=== PATIENT | female | born 2000 | race American Indian/Alaskan Native ===

== ENCOUNTER 2019-07-27 15:07 | Outpatient (CLI) | payer MEDICAID ==
[2019-07-27 15:58] LABS: Hematocrit 35.5 % (30.3-42.9); Hemoglobin 11.9 gm/dl (10.1-14.3); Mean Corpuscular HGB Conc 34 % (30-34); Mean Corpuscular Volume 98 fl (79-97); Platelet Count 250 K/mm3 (140-440); Red Blood Count 3.62 M/mm3 (3.65-5.03); Red Cell Distribution Width 14.7 % (13.2-15.2)
[2019-07-27] MEDS ORDERED: LACTATED RINGERS 1,000 ML IV SCH (16:00)
[2019-07-27 16:22] LABS: Alanine Aminotransferase 11 units/L (7-56); Uric Acid 4.4 mg/dL (3.5-7.6)
[2019-07-27] MEDS ORDERED: OXYTOCIN 20 UNIT/1000ML DRIP 20,000 MILLIUNITS/1,000 ML BAG IV ONE (16:26)
[2019-07-27 16:35] LABS: Bilirubin,Urine NEG (Negative); Blood,Urine NEG (Negative); Color,Urine Yellow (Yellow); Mucus,Urine FEW /HPF; Protein,Urine <15 mg/dL mg/dL (Negative); Urobilinogen,Urine < 2.0 mg/dL (<2.0)
[2019-07-27 17:06] VITALS: BP 115/69
== END 2019-07-27 17:30 | disposition home or self-care (01) ==
LOC: TRG 15:07 → APU 15:07 → TRG 17:30
PROVIDERS: ATTEND Obstetrics & Gynecology
DX: O13.3 Gestational [pregnancy-induced] hypertension without significant proteinuria, third trimester (principal); Z3A.34 34 weeks gestation of pregnancy
CPT/HCPCS: 36415; 59025; 81001; 82565; 83615; 84450; 84460; 84550; 85027; J2590

== ENCOUNTER 2019-08-13 20:34 | Inpatient (IN) | payer MEDICAID ==
--- NOTE | 2019-08-13 21:22 | History and Physical Report ---
History of Present Illness Date of examination: 08/13/19 (Mild PreE IOL as per [facility] recommendation) Date of admission: 08/13/19 20:34 History of present illness: EDC Confirmation: 09/03/2019 Gestational Age: 22 4/7 weeks Past History : 1 Term Births: 0 Premature Births: 0 Living Children: 0 Para: 0 Mult. Births: 0 Prev : 0 Prev. attempt? 0 Aborta: 0 Elect. Ab: 0 Spont. Ab: 0 Ectopics: 0 Past Medical History: maybe htn? 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 of genital herpes: no Partner hx. of genital herpes: no Rash, Viral, or Febrile illness since last LMP? no Varicella/Chicken Pox Status: Immunized Genetic History Congenital Heart Defect: Mom: no Dad: no Trinity Disease: Mom: no Dad: no Thalassemia Mom: no Dad: no Neural Tube Defect Mom: no Dad: no Down's Syndrome Mom: no Dad: no Danielito-Sachs Mom: no Dad: no Sickle Cell Disease/Trait Mom: no Dad: no Hemophilia Mom: no Dad: no Muscular Dystrophy Mom: no Dad: no Cystic Fibrosis Mom: no Dad: no [place] Chorea Mom: no Dad: no Mental Retardation Mom: no Dad: no Fragile X Mom: no Dad: no Other Genetic/Chromosomal Disorder Mom: no Dad: no Child w/other defect Mom: no Dad: no Enviromental Exposures Xray Exposure: no Medication, drug, or alcohol use since LMP: no Chemical/Other Exposure: no Exposure to Cat Liter: no Hx of Parvovirus (Fifth Disease): no Occupational Exposure to Children: none Active Medications (reviewed today): PLUS 27-1 MG ORAL TABLET ( VIT-FE FUMARATE-FA) 1 po daily Current Allergies (reviewed today): No known allergies Past History - Obstetrical History Expected Date of Delivery: 09/03/19 Actual Gestation: 37 Week(s) 1 Day(s) : 2 Para: 0 Hx # Term Pregnancies: 0 Number of Pregnancies: 0 Spontaneous Abortions: 1 Induced : 0 Number of Living Children: 0 Medications and Allergies Allergies Allergy/AdvReac Type Severity Reaction Status Date / Time No Known Allergies Allergy Verified 07/27/19 15:45 Home Medications Medication Instructions Recorded Confirmed Last Taken Type Vitamin 1 tab PO QDAY 08/13/19 08/13/19 08/12/19 10:00 History - Physical Exam Breasts: Positive: deferred Cardiovascular: Regular rate, Normal S1, Normal S2 Lungs: Positive: Clear to auscultation Abdomen: Positive: normal appearance, soft, normal bowel sounds. Negative: distention, tenderness Genitourinary (Female): Positive: normal external genitalia Vulva: both: normal Vagina: Positive: normal moisture. Negative: discharge Cervix: Negative: lesion, discharge Uterus: Positive: normal size, normal contour Adnexa: both: normal Anus/Rectum: Positive: normal perianal skin, heme negative. Negative: rectal mass, hemorrhoids Extremities: Positive: edema Deep Tendon Reflex Grade: Normal +2 - Obstetrical FHR: category 1 Uterine Contraction Monitor Mode: External Cervical Dilatation: 0 (vertex ballotable) Cervical Effacement Percentage: 50 station: -4 Uterine Contraction Pattern: Absent Uterine Tone Measurement Phase: Resting Results Result Diagrams: 08/13/19 22:45 08/13/19 22:45 All other labs normal. GBS NEGATIVE Current OB Labs Blood Type: A (02/21/2019) Rh Type: positive (02/21/2019) Rh Antibody Screen: negative (02/21/2019) Hgb: 11.6 (02/21/2019) Hct: 35.5 (02/21/2019) Platelets: 308 (02/21/2019) Rubella: immune (02/21/2019) RPR: nonreactive (02/21/2019) Hep B Surface Antigen: negative (02/21/2019) HIV: negative (02/21/2019) Pap Smear: abnormal (02/21/2019) Quad Screen AFP: neg (03/21/2019) Optional Labs Hepatitis C: neg (02/21/2019) Assessment and Plan 19yo @ 37w for IOL Mild PreE GBS negative. Cervidil tonight All orders in EMR Dr Arora aware. - Patient Problems (1) Mild pre-eclampsia in third trimester Onset Date: ~08/13/19 Current Visit: Yes Status: Acute Plan to address problem: [facility] recommends delivery @ 37w0d for Mild PreE PIH w/u done on admission
[2019-08-13] MEDS ORDERED: TERBUTALINE 1 MG/1 ML INJ SUB-Q PRN (21:25)
[2019-08-13] MEDS ORDERED: MINERAL OIL 30 ML ORAL LIQD PO PRN (21:25)
[2019-08-13] MEDS ORDERED: fentaNYL 100 MCG/2 ML INJ IV PRN (21:25)
[2019-08-13] MEDS ORDERED: ePHEDrine SULFATE 50 MG/1 ML INJ IV PRN (21:25)
[2019-08-13] MEDS ORDERED: ONDANSETRON 4 MG/2 ML INJ IV PRN (21:25)
[2019-08-13] MEDS ORDERED: LIDOCAINE (2%) 20 MG/1 ML VIAL 20 ML MDV INFILTRATI ONE (21:25)
[2019-08-13] MEDS ORDERED: DINOPROSTONE 10 MG VAG SUPP VG ONE (21:45)
[2019-08-13] MEDS ORDERED: LACTATED RINGERS 1,000 ML IV SCH (22:00)
[2019-08-13] MEDS ORDERED: OXYTOCIN 20 UNIT/1000ML DRIP 20 UNITS/1,000 ML BAG IV SCH (22:00)
[2019-08-13 23:34] LABS: Hematocrit 34.3 % (30.3-42.9); Hemoglobin 11.7 gm/dl (10.1-14.3); Mean Corpuscular HGB Conc 34 % (30-34); Mean Corpuscular Volume 98 fl (79-97); Platelet Count 226 K/mm3 (140-440); Red Blood Count 3.49 M/mm3 (3.65-5.03); Red Cell Distribution Width 14.9 % (13.2-15.2)
[2019-08-13 23:37] LABS: Bilirubin,Urine NEG (Negative); Blood,Urine NEG (Negative); Calcium Oxalate Crystals,Urine 2+; Color,Urine Yellow (Yellow); Mucus,Urine FEW /HPF; Protein,Urine <15 mg/dL mg/dL (Negative); Urobilinogen,Urine < 2.0 mg/dL (<2.0)
[2019-08-13 23:54] LABS: Alanine Aminotransferase 18 units/L (7-56)
[2019-08-14 02:36] LABS: Uric Acid 5.6 mg/dL (3.5-7.6)
--- NOTE | 2019-08-14 07:30 | Progress Note ---
Assessment and Plan patient comfortable, no complaints. Pt does not perceive ctx or cramping. reviewed plan of care. Will remove cervidil @ 10, allow AM care and regular diet then start pitocin. explained serial IOL, will reassess this evening or PRN. - Patient Problems (1) 37 or more weeks gestation of Current Visit: Yes Status: Acute (2) Mild pre-eclampsia in third trimester Onset Date: ~08/13/19 Current Visit: Yes Status: Acute Plan to address problem: Mag sulfate when in active labor Closely monitor b/p's and for s/s of worsening pre-e Subjective - Subjective Date of service: 08/14/19 Principal diagnosis: IUP @ 37+1, IOL for mild pre-e Patient reports: movement normal, no new complaints (denies VALDERRAMA, visual changes or epigastric pain) Objective - Vital Signs Vital Signs: Vital Signs - 12hr 08/13/19 08/13/19 08/13/19 21:49 21:51 22:32 Temperature Pulse Rate 86 84 77 Respiratory Rate Blood Pressure 162/95 151/77 140/74 Blood Pressure [Right] 08/13/19 08/13/19 08/13/19 22:56 23:06 23:16 Temperature Pulse Rate 77 83 81 Respiratory Rate Blood Pressure 157/89 153/92 156/92 Blood Pressure [Right] 08/13/19 08/13/19 08/14/19 23:21 23:53 00:21 Temperature 98.4 F Pulse Rate 93 H 90 Respiratory 16 Rate Blood Pressure 132/61 116/56 Blood Pressure [Right] 08/14/19 08/14/19 08/14/19 00:51 01:51 02:22 Temperature Pulse Rate 96 H 84 88 Respiratory Rate Blood Pressure 123/58 129/64 151/88 Blood Pressure [Right] 08/14/19 08/14/19 08/14/19 02:51 03:21 03:51 Temperature 98.1 F Pulse Rate 88 92 H 97 H Respiratory Rate Blood Pressure 137/93 139/83 139/83 Blood Pressure [Right] 08/14/19 08/14/19 08/14/19 04:21 04:52 05:21 Temperature Pulse Rate 94 H 84 82 Respiratory Rate Blood Pressure 125/81 150/89 156/96 Blood Pressure [Right] 08/14/19 08/14/19 08/14/19 05:52 06:21 06:53 Temperature Pulse Rate 76 85 85 Respiratory Rate Blood Pressure 143/89 148/84 157/93 Blood Pressure [Right] 08/14/19 08/14/19 08/14/19 07:10 07:12 07:21 Temperature 98.2 F Pulse Rate 85 89 90 Respiratory 20 Rate Blood Pressure 144/94 146/95 Blood Pressure 144/94 [Right] - Exam Breasts: normal Cardiovascular: Regular rate Lungs: Clear to auscultation, Normal air movement Abdomen: Present: normal appearance, soft Vulva: both: normal Uterus: Present: normal, fundal height above umbilicus FHR: auscultation normal, category 1 Uterine Contraction Monitor Mode: External Uterine Contraction Pattern: Irregular Uterine Contraction Intensity: Mild Extremities: normal Deep Tendon Reflex Grade: Normal +2 - Labs Labs: Abnormal Labs 08/13/19 08/13/19 08/13/19 22:45 22:45 23:00 RBC 3.49 L MCV 98 H MCH 34 H Lactate Dehydrogenase 268 H Urine WBC (Auto) 16.0 H Laboratory Results - last 24 hr 08/13/19 08/13/19 08/13/19 22:45 22:45 22:45 WBC 8.1 RBC 3.49 L Hgb 11.7 Hct 34.3 MCV 98 H MCH 34 H MCHC 34 RDW 14.9 Plt Count 226 Creatinine Estimated GFR Uric Acid AST ALT Lactate Dehydrogenase Urine Color Urine Turbidity Urine pH Ur Specific [place] Urine Protein Urine Glucose (UA) Urine Ketones Urine Blood Urine Nitrite Urine Bilirubin Urine Urobilinogen Ur Leukocyte Esterase Urine WBC (Auto) Urine RBC (Auto) U Epithel Cells (Auto) Calcium Oxalate Crystal Urine Mucus Urine Yeast (Budding) Syphilis IgG Antibody Non-reactive Blood Type AB POSITIVE Antibody Screen Negative 08/13/19 08/13/19 22:45 23:00 WBC RBC Hgb Hct MCV MCH MCHC RDW Plt Count Creatinine 0.7 Estimated GFR > 60 Uric Acid 5.6 AST 25 ALT 18 Lactate Dehydrogenase 268 H Urine Color Yellow Urine Turbidity Clear Urine pH 6.0 Ur Specific [place] 1.018 Urine Protein <15 mg/dl Urine Glucose (UA) Neg Urine Ketones Neg Urine Blood Neg Urine Nitrite Neg Urine Bilirubin Neg Urine Urobilinogen < 2.0 Ur Leukocyte Esterase Lg Urine WBC (Auto) 16.0 H Urine RBC (Auto) 8.0 U Epithel Cells (Auto) 1.0 Calcium Oxalate Crystal 2+ Urine Mucus Few Urine Yeast (Budding) 1+ Syphilis IgG Antibody Blood Type Antibody Screen
[2019-08-14] MEDS: LACTATED RINGERS 1,000 ML IV SCH (09:20)
[2019-08-14] MEDS: OXYTOCIN DRIP 30 UNITS/500 ML BAG IV SCH ×8 (12:00→16:10)
--- NOTE | 2019-08-14 16:43 | Progress Note ---
Assessment and Plan patient relatively comfortable, no change in SVE. Will continue pitocin until 1700 then d/c, allow dinner and ambulation with reactive tracing. Plan to place cervidil @ 1900. all questions addressed with patient, nursing staff aware. requested nursing staff keep up with I&O. Patient's FOC has been dumping urine. - Patient Problems (1) 37 or more weeks gestation of Current Visit: Yes Status: Acute (2) Mild pre-eclampsia in third trimester Onset Date: ~08/13/19 Current Visit: Yes Status: Acute Plan to address problem: Mag sulfate when in active labor Closely monitor b/p's and for s/s of worsening pre-e Subjective - Subjective Date of service: 08/14/19 Principal diagnosis: IUP @ 37+1, IOL for mild pre-e Patient reports: movement normal, no new complaints (denies VALDERRAMA, visual changes or epigastric pain) Objective - Vital Signs Vital Signs: Vital Signs - 12hr 08/14/19 08/14/19 08/14/19 04:52 05:21 05:52 Temperature Pulse Rate 84 82 76 Respiratory Rate Blood Pressure 150/89 156/96 143/89 Blood Pressure [Right] 08/14/19 08/14/19 08/14/19 06:21 06:53 07:10 Temperature 98.2 F Pulse Rate 85 85 85 Respiratory 20 Rate Blood Pressure 148/84 157/93 Blood Pressure 144/94 [Right] 08/14/19 08/14/19 08/14/19 07:12 07:21 07:51 Temperature Pulse Rate 89 90 86 Respiratory Rate Blood Pressure 144/94 146/95 120/71 Blood Pressure [Right] 08/14/19 08/14/19 08/14/19 08:21 08:51 09:24 Temperature Pulse Rate 84 84 86 Respiratory Rate Blood Pressure 132/68 130/71 128/77 Blood Pressure [Right] 08/14/19 08/14/19 08/14/19 12:02 12:10 12:33 Temperature 98.7 F Pulse Rate 87 87 86 Respiratory 24 Rate Blood Pressure 158/89 138/86 Blood Pressure 158/89 [Right] 08/14/19 08/14/19 08/14/19 13:02 13:33 14:04 Temperature Pulse Rate 97 H 107 H 85 Respiratory Rate Blood Pressure 140/84 132/72 160/83 Blood Pressure [Right] 08/14/19 08/14/19 08/14/19 14:22 14:33 15:03 Temperature Pulse Rate 90 83 85 Respiratory Rate Blood Pressure 154/95 167/80 138/68 Blood Pressure [Right] 08/14/19 08/14/19 15:32 16:02 Temperature 98.1 F Pulse Rate 86 100 H Respiratory 20 Rate Blood Pressure 136/68 143/80 Blood Pressure 143/80 [Right] - Exam Breasts: normal Cardiovascular: Regular rate Lungs: Clear to auscultation Abdomen: Present: normal appearance, soft Vulva: both: normal Uterus: Present: normal, fundal height above umbilicus FHR: auscultation normal Uterine Contraction Monitor Mode: External Cervical Dilatation: 0 (posterior) Cervical Effacement Percentage: 30 station: -2 Uterine Contraction Pattern: Irregular Uterine Tone Measurement Phase: Contraction Uterine Contraction Intensity: Mild Extremities: normal Deep Tendon Reflex Grade: Normal +2 - Labs Labs: Abnormal Labs 08/13/19 08/13/19 08/13/19 22:45 22:45 23:00 RBC 3.49 L MCV 98 H MCH 34 H Lactate Dehydrogenase 268 H Urine WBC (Auto) 16.0 H Laboratory Results - last 24 hr 08/13/19 08/13/19 08/13/19 22:45 22:45 22:45 WBC 8.1 RBC 3.49 L Hgb 11.7 Hct 34.3 MCV 98 H MCH 34 H MCHC 34 RDW 14.9 Plt Count 226 Creatinine Estimated GFR Uric Acid AST ALT Lactate Dehydrogenase Urine Color Urine Turbidity Urine pH Ur Specific [place] Urine Protein Urine Glucose (UA) Urine Ketones Urine Blood Urine Nitrite Urine Bilirubin Urine Urobilinogen Ur Leukocyte Esterase Urine WBC (Auto) Urine RBC (Auto) U Epithel Cells (Auto) Calcium Oxalate Crystal Urine Mucus Urine Yeast (Budding) Syphilis IgG Antibody Non-reactive Blood Type AB POSITIVE Antibody Screen Negative 08/13/19 08/13/19 22:45 23:00 WBC RBC Hgb Hct MCV MCH MCHC RDW Plt Count Creatinine 0.7 Estimated GFR > 60 Uric Acid 5.6 AST 25 ALT 18 Lactate Dehydrogenase 268 H Urine Color Yellow Urine Turbidity Clear Urine pH 6.0 Ur Specific [place] 1.018 Urine Protein <15 mg/dl Urine Glucose (UA) Neg Urine Ketones Neg Urine Blood Neg Urine Nitrite Neg Urine Bilirubin Neg Urine Urobilinogen < 2.0 Ur Leukocyte Esterase Lg Urine WBC (Auto) 16.0 H Urine RBC (Auto) 8.0 U Epithel Cells (Auto) 1.0 Calcium Oxalate Crystal 2+ Urine Mucus Few Urine Yeast (Budding) 1+ Syphilis IgG Antibody Blood Type Antibody Screen
[2019-08-14] MEDS ORDERED: DINOPROSTONE 10 MG VAG SUPP VG ONE (19:00)
[2019-08-14] MEDS ORDERED: ZOLPIDEM 5 MG TAB PO ONE (20:00)
--- NOTE | 2019-08-15 07:25 | Progress Note ---
Assessment and Plan A: 19 y.o. @ 37+ wks, IOL for pre eclampsia. Cervical exam unchanged. P: Will start Pitocin this AM. Subjective - Subjective Date of service: 08/15/19 (Pt states feeling occasional ctxs) Principal diagnosis: IUP @ 37+ wks, IOL for mild pre-e Patient reports: movement normal, no new complaints (denies VALDERRAMA, visual changes or epigastric pain) Objective - Vital Signs Vital Signs: Vital Signs - 12hr 08/14/19 08/14/19 08/14/19 19:25 19:33 20:02 Temperature 98.2 F Pulse Rate 99 H 90 Respiratory 16 Rate Blood Pressure 136/78 148/88 08/14/19 08/14/19 08/14/19 20:32 21:02 22:38 Temperature Pulse Rate 93 H 97 H 91 H Respiratory Rate Blood Pressure 169/98 141/84 133/74 08/14/19 08/15/19 08/15/19 23:38 00:00 00:38 Temperature 98.2 F Pulse Rate 83 84 Respiratory 16 Rate Blood Pressure 134/63 136/69 08/15/19 08/15/19 08/15/19 01:38 02:39 03:39 Temperature Pulse Rate 93 H 93 H 96 H Respiratory Rate Blood Pressure 142/88 144/101 140/85 08/15/19 08/15/19 08/15/19 04:39 05:38 06:39 Temperature Pulse Rate 100 H 96 H 85 Respiratory Rate Blood Pressure 124/76 140/92 135/64 - Exam Breasts: deferred Cardiovascular: Regular rate Lungs: Normal air movement Abdomen: Present: normal appearance, soft. Absent: distention, tenderness Uterus: Present: normal FHR: category 1 Uterine Contraction Monitor Mode: External Cervical Dilatation: 0 Cervical Effacement Percentage: 30 station: -2 Uterine Contraction Pattern: Absent Extremities: normal - Labs Labs: Abnormal Labs 08/13/19 08/13/19 08/13/19 22:45 22:45 23:00 RBC 3.49 L MCV 98 H MCH 34 H Lactate Dehydrogenase 268 H Urine WBC (Auto) 16.0 H
--- NOTE | 2019-08-15 08:25 | Event Note ---
Date: 08/15/19 (Spoke with patient regarding IOL.) Spoke with patient and FOC regarding serial IOL. This AM would like to try to start the Pitocin to see if that will help with cervical change. If no cervical change occurs, then let her eat lunch and after lunch start the process over again. Pt voiced understanding at that time. When RN went into the room to care for patient and she asked RN why she could not eat and shower. RN stated that pt was upset by not being able to eat this AM. Went in the room to speak with patient and she stated that if her cervix had not changed then she "just wants to go home". I again explained to the patient why she was being induced and that the risk of pre eclampsia and eclampsia, and that we were monitoring her, her b blessing, and her blood pressures. Explained that if she has a seizure, or eclampsia at home then she and her baby could . That we would not be able to monitor her and her baby when she was at home. Also spoke with the patients father, with permission of the pt on her cell phone, and updated him on pt condition. Pt is concerned about having a and states that she does not want a at this time. Explained that pt will not need a at this time and that IOL can take up to three days. Pt more calm after explanation and voiced understanding.
--- NOTE | 2019-08-15 18:26 | Progress Note ---
Assessment and Plan A: 19 y.o. @ 37+ wks, IOL for mild pre eclampsia. Cervical exam remains unchanged. P: Stop Pitocin. Allow the patient to eat dinner. Insert cytotec tonight. Subjective - Subjective Date of service: 08/15/19 (Pt is comfortable still not feeling any contractions. ) Principal diagnosis: IUP @ 37+ wks, IOL for mild pre-e Patient reports: movement normal, no new complaints (denies VALDERRAMA, visual changes or epigastric pain) Objective - Vital Signs Vital Signs: Vital Signs - 12hr 08/15/19 08/15/19 08/15/19 06:39 07:32 07:38 Temperature 98.1 F Pulse Rate 85 104 H Respiratory 18 Rate Blood Pressure 135/64 159/96 Blood Pressure [Right] O2 Sat by Pulse Oximetry 08/15/19 08/15/19 08/15/19 11:30 14:30 15:55 Temperature 98.2 F 98.2 F Pulse Rate 85 79 94 H Respiratory 16 13 Rate Blood Pressure 163/93 Blood Pressure 152/76 149/88 [Right] O2 Sat by Pulse 99 98 Oximetry 08/15/19 08/15/19 08/15/19 15:56 17:31 17:49 Temperature Pulse Rate 99 H 101 H 85 Respiratory Rate Blood Pressure 165/95 156/93 159/87 Blood Pressure [Right] O2 Sat by Pulse Oximetry 08/15/19 08/15/19 18:03 18:19 Temperature Pulse Rate 80 77 Respiratory Rate Blood Pressure 165/90 164/91 Blood Pressure [Right] O2 Sat by Pulse Oximetry - Exam Narrative Exam: Spoke with patient regarding the plan of care for the night to stop her Pitocin, let her eat dinner, and insert cytotec vaginally. Pt agrees to the plan for the night. Pt states that she is not feeling any contractions and no contractions noted on the monitor. Breasts: deferred Cardiovascular: Regular rate Lungs: Normal air movement Abdomen: Present: normal appearance, soft. Absent: distention, tenderness Vulva: both: normal Uterus: Present: normal FHR: auscultation normal Uterine Contraction Monitor Mode: External Uterine Contraction Pattern: Absent Extremities: normal Deep Tendon Reflex Grade: Normal +2 - Labs Labs: Abnormal Labs 08/13/19 08/13/19 08/13/19 22:45 22:45 23:00 RBC 3.49 L MCV 98 H MCH 34 H Lactate Dehydrogenase 268 H Urine WBC (Auto) 16.0 H
[2019-08-15] MEDS ORDERED: miSOPROStol 25 MCG TAB VG ONE ×2 (19:00→23:59)
[2019-08-15] MEDS ORDERED: ZOLPIDEM 5 MG TAB PO ONE (19:25)
[2019-08-15] MEDS ORDERED: diphenhydrAMINE 50 MG CAP PO NR (20:00)
--- NOTE | 2019-08-16 00:21 | Event Note ---
Date: 08/16/19 (Pt comfortable, resting in bed) Pt is comfortable at this time. States that she is not feeling any contractions. No contractions noted on monitor. Cervical exam remains unchanged. Cytotec 25 mcg placed vaginally. Will continue to monitor.
[2019-08-16] MEDS ORDERED: miSOPROStol 25 MCG TAB PO ONE (04:00)
--- NOTE | 2019-08-16 06:12 | Progress Note ---
Assessment and Plan pt agreed to cervical exam when I returned to her room. There is significant chg from my previous exam. Despite there not being any ctx recorded nor felt by pt. SVE 1,50,-2 prev exam was closed, thick, and very high. Pt OOB for AM care and diet Will start pitocin as soon as possible. Dr Santizo made aware of pt. - Patient Problems (1) Mild pre-eclampsia in third trimester Onset Date: ~08/13/19 Current Visit: Yes Status: Acute Plan to address problem: BP 160-130/90-70 Denies any VALDERRAMA, blurred vision, chest pain. FHR Cat 1. No ctx recorded. SVE 1,50,-2 BBOW Will allow AM care. Diet, Start Pit by 0900. Will report to Dr Santizo Subjective - Subjective Date of service: 08/16/19 (pt sleeping; defered SVE) Principal diagnosis: IUP @ 37w3d, IOL for mild pre-e Interval history: EDC Confirmation: 09/03/2019 Gestational Age: 22 4/7 weeks Past History : 1 Term Births: 0 Premature Births: 0 Living Children: 0 Para: 0 Mult. Births: 0 Prev : 0 Prev. attempt? 0 Aborta: 0 Elect. Ab: 0 Spont. Ab: 0 Ectopics: 0 Past Medical History: maybe htn? 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 of genital herpes: no Partner hx. of genital herpes: no Rash, Viral, or Febrile illness since last LMP? no Varicella/Chicken Pox Status: Immunized Genetic History Congenital Heart Defect: Mom: no Dad: no Trinity Disease: Mom: no Dad: no Thalassemia Mom: no Dad: no Neural Tube Defect Mom: no Dad: no Down's Syndrome Mom: no Dad: no Danielito-Sachs Mom: no Dad: no Sickle Cell Disease/Trait Mom: no Dad: no Hemophilia Mom: no Dad: no Muscular Dystrophy Mom: no Dad: no Cystic Fibrosis Mom: no Dad: no [place] Chorea Mom: no Dad: no Mental Retardation Mom: no Dad: no Fragile X Mom: no Dad: no Other Genetic/Chromosomal Disorder Mom: no Dad: no Child w/other defect Mom: no Dad: no Enviromental Exposures Xray Exposure: no Medication, drug, or alcohol use since LMP: no Chemical/Other Exposure: no Exposure to Cat Liter: no Hx of Parvovirus (Fifth Disease): no Occupational Exposure to Children: none Active Medications (reviewed today): PLUS 27-1 MG ORAL TABLET ( VIT-FE FUMARATE-FA) 1 po daily Current Allergies (reviewed today): No known allergies Patient reports: movement normal, no new complaints (denies VALDERRAMA, visual changes or epigastric pain) Objective - Vital Signs Vital Signs: Vital Signs - 12hr 08/15/19 08/15/19 08/15/19 18:19 18:33 19:26 Temperature Pulse Rate 77 76 85 Blood Pressure 164/91 159/85 160/94 08/15/19 08/15/19 08/15/19 19:34 19:36 19:48 Temperature 98.4 F Pulse Rate 86 86 Blood Pressure 153/89 154/88 08/15/19 08/15/19 08/15/19 20:03 20:19 20:35 Temperature Pulse Rate 75 85 97 H Blood Pressure 150/82 181/99 159/105 08/15/19 08/15/19 08/15/19 21:19 21:34 21:48 Temperature Pulse Rate 82 85 89 Blood Pressure 174/89 164/89 154/81 08/15/19 08/15/19 08/15/19 22:04 22:19 22:33 Temperature Pulse Rate 93 H 86 86 Blood Pressure 148/85 147/65 139/62 08/15/19 08/15/19 08/15/19 22:48 23:04 23:18 Temperature Pulse Rate 91 H 85 86 Blood Pressure 152/68 131/59 139/63 08/15/19 08/15/19 08/16/19 23:33 23:48 00:04 Temperature Pulse Rate 93 H 105 H 83 Blood Pressure 139/63 150/65 142/65 08/16/19 08/16/19 08/16/19 00:19 00:34 00:48 Temperature Pulse Rate 92 H 80 76 Blood Pressure 153/73 128/67 131/67 08/16/19 08/16/19 08/16/19 01:05 01:18 01:33 Temperature Pulse Rate 75 80 77 Blood Pressure 134/77 136/80 140/79 08/16/19 08/16/19 08/16/19 02:00 02:04 02:20 Temperature 98.6 F Pulse Rate 73 75 Blood Pressure 173/87 163/85 08/16/19 08/16/19 08/16/19 02:35 02:48 03:03 Temperature Pulse Rate 80 75 79 Blood Pressure 156/85 165/90 164/82 08/16/19 08/16/19 08/16/19 03:19 03:33 03:49 Temperature Pulse Rate 78 79 75 Blood Pressure 151/74 146/71 165/90 08/16/19 08/16/19 08/16/19 04:03 04:19 04:35 Temperature Pulse Rate 86 83 93 H Blood Pressure 152/82 141/96 168/95 08/16/19 08/16/19 08/16/19 04:49 05:19 05:33 Temperature Pulse Rate 88 77 83 Blood Pressure 158/79 137/63 126/60 08/16/19 08/16/19 05:48 06:05 Temperature Pulse Rate 83 92 H Blood Pressure 131/61 141/82 - Exam Breasts: deferred Cardiovascular: Regular rate Lungs: Normal air movement Abdomen: Present: normal appearance, soft. Absent: distention, tenderness Uterus: Present: normal FHR: auscultation normal, category 1 Uterine Contraction Monitor Mode: External Cervical Dilatation: 1 (cervix is anterior) Cervical Effacement Percentage: 50 (BBOW) station: -2 Uterine Contraction Pattern: Absent Uterine Tone Measurement Phase: Resting Extremities: edema (pt requested SCDs off) Deep Tendon Reflex Grade: Normal +2 - Labs Labs: Abnormal Labs 08/13/19 08/13/19 08/13/19 22:45 22:45 23:00 RBC 3.49 L MCV 98 H MCH 34 H Lactate Dehydrogenase 268 H Urine WBC (Auto) 16.0 H
[2019-08-16] MEDS ORDERED: OXYTOCIN DRIP 30 UNITS/500 ML BAG IV SCH (08:00)
[2019-08-16] MEDS: LACTATED RINGERS 1,000 ML IV SCH (09:35)
[2019-08-16] MEDS ORDERED: DEXMEDETOMIDINE 200 MCG/2 ML VIAL IV ONE ×2 (11:02→18:08)
[2019-08-16] MEDS ORDERED: fentaNYL-BUPIV 2 MCG/ML-0.125% 200 MCG/100 ML BAG EPIDURAL ONE (11:02)
[2019-08-16] MEDS ORDERED: NALOXONE 2 MG/2 ML INJ IV PRN (11:03)
[2019-08-16] MEDS ORDERED: ePHEDrine SULFATE 50 MG/1 ML INJ IV PRN (11:03)
--- NOTE | 2019-08-16 11:03 | Anesthesia Consultation ---
Anesthesia Consult and Med Hx Date of service: 08/16/19 - Airway Anesthetic Teeth Evaluation: Good ROM Head & Neck: Adequate Mental/Hyoid Distance: Adequate Mallampati Class: Class II Intubation Access Assessment: Probably Good - Pulmonary Exam CTA: Yes - Cardiac Exam Cardiac Exam: RRR - Pre-Operative Health Status ASA Pre-Surgery Classification: ASA3 Proposed Anesthetic Plan: Spinal - Pulmonary Hx Asthma: No COPD: No Hx Pneumonia: No - Cardiovascular System Hx Hypertension: Yes (Pre-E) - Central Nervous System Hx Seizures: No Hx Psychiatric Problems: No - Endocrine Hx Renal Disease: No Hx End Stage Renal Disease: No Hx Hypothyroidism: No Hx Hyperthyroidism: No - Hematic Hx Anemia: No Hx Sickle Cell Disease: No - Other Systems Hx Alcohol Use: No Hx Obesity: Yes
--- NOTE | 2019-08-16 11:12 | Event Note ---
Date: 08/16/19 (pt getting epidural) At 1052 BP 190/105 Spoke with CN ask that BP be retaken 145/67 Pt sitting for epidural
[2019-08-16] MEDS ORDERED: fentaNYL-BUPIV 2 MCG/ML-0.125% 200 MCG/100 ML BAG EPIDURAL SCH (12:00)
--- NOTE | 2019-08-16 12:58 | Progress Note ---
Assessment and Plan - Patient Problems (1) Mild pre-eclampsia in third trimester Onset Date: ~08/13/19 Current Visit: Yes Status: Acute Plan to address problem: BP 130-120/70-60 Cat 1 strip Uterine pressure elevated 50u with IUPC in place. SVE 4,100,0. Pit @ 4mu Observe for 1 hour prior to increasing pitocin Subjective - Subjective Date of service: 08/16/19 (comfortable with epidural) Principal diagnosis: IUP @ 37w3d, IOL for mild pre-e Interval history: EDC Confirmation: 09/03/2019 Gestational Age: 22 4/7 weeks Past History : 1 Term Births: 0 Premature Births: 0 Living Children: 0 Para: 0 Mult. Births: 0 Prev : 0 Prev. attempt? 0 Aborta: 0 Elect. Ab: 0 Spont. Ab: 0 Ectopics: 0 Past Medical History: maybe htn? Past Surgical History: skin graft right arm and right thigh following morel Past Medical History Surgery (Non-cap parts cutter): skin graft right arm and right thigh following morel Abnormal PAP: negative Family Hx: htn - mother Social Hx: single relocated from [facility] 04/2019 denies ETOH/Drugs/Smoking Dog ob/gyn physician Infection History Hx of STD: chlamydia HIV Risk Eval: low risk Hepatitis B Risk Eval: low risk Personal hx. of genital herpes: no Partner hx. of genital herpes: no Rash, Viral, or Febrile illness since last LMP? no Varicella/Chicken Pox Status: Immunized Genetic History Congenital Heart Defect: Mom: no Dad: no Trinity Disease: Mom: no Dad: no Thalassemia Mom: no Dad: no Neural Tube Defect Mom: no Dad: no Down's Syndrome Mom: no Dad: no Danielito-Sachs Mom: no Dad: no Sickle Cell Disease/Trait Mom: no Dad: no Hemophilia Mom: no Dad: no Muscular Dystrophy Mom: no Dad: no Cystic Fibrosis Mom: no Dad: no [place] Chorea Mom: no Dad: no Mental Retardation Mom: no Dad: no Fragile X Mom: no Dad: no Other Genetic/Chromosomal Disorder Mom: no Dad: no Child w/other defect Mom: no Dad: no Enviromental Exposures Xray Exposure: no Medication, drug, or alcohol use since LMP: no Chemical/Other Exposure: no Exposure to Cat Liter: no Hx of Parvovirus (Fifth Disease): no Occupational Exposure to Children: none Active Medications (reviewed today): PLUS 27-1 MG ORAL TABLET ( VIT-FE FUMARATE-FA) 1 po daily Current Allergies (reviewed today): No known allergies Patient reports: movement normal, no new complaints (denies VALDERRAMA, visual changes or epigastric pain) Objective - Vital Signs Vital Signs: Vital Signs - 12hr 08/16/19 08/16/19 08/16/19 01:05 01:18 01:33 Temperature Pulse Rate 75 80 77 Blood Pressure 134/77 136/80 140/79 O2 Sat by Pulse Oximetry 08/16/19 08/16/19 08/16/19 02:00 02:04 02:20 Temperature 98.6 F Pulse Rate 73 75 Blood Pressure 173/87 163/85 O2 Sat by Pulse Oximetry 08/16/19 08/16/19 08/16/19 02:35 02:48 03:03 Temperature Pulse Rate 80 75 79 Blood Pressure 156/85 165/90 164/82 O2 Sat by Pulse Oximetry 08/16/19 08/16/19 08/16/19 03:19 03:33 03:49 Temperature Pulse Rate 78 79 75 Blood Pressure 151/74 146/71 165/90 O2 Sat by Pulse Oximetry 08/16/19 08/16/19 08/16/19 04:03 04:19 04:35 Temperature Pulse Rate 86 83 93 H Blood Pressure 152/82 141/96 168/95 O2 Sat by Pulse Oximetry 08/16/19 08/16/19 08/16/19 04:49 05:19 05:33 Temperature Pulse Rate 88 77 83 Blood Pressure 158/79 137/63 126/60 O2 Sat by Pulse Oximetry 08/16/19 08/16/19 08/16/19 05:48 06:05 08:52 Temperature Pulse Rate 83 92 H 87 Blood Pressure 131/61 141/82 133/74 O2 Sat by Pulse Oximetry 08/16/19 08/16/19 08/16/19 08:56 08:57 09:01 Temperature Pulse Rate 93 H Blood Pressure O2 Sat by Pulse 72 L 88 100 Oximetry 08/16/19 08/16/19 08/16/19 09:06 09:11 09:16 Temperature Pulse Rate 89 91 H 98 H Blood Pressure O2 Sat by Pulse 99 99 100 Oximetry 08/16/19 08/16/1920 09:29 09:31 09:32 Temperature Pulse Rate 97 H 96 H 92 H Blood Pressure 164/92 161/92 O2 Sat by Pulse 99 Oximetry 08/16/19 08/16/19 08/16/19 09:34 09:39 09:44 Temperature Pulse Rate 97 H 95 H 110 H Blood Pressure 159/85 O2 Sat by Pulse 99 99 98 Oximetry 08/16/19 08/16/19 08/16/19 09:49 09:51 10:05 Temperature Pulse Rate 93 H 90 93 H Blood Pressure 144/77 O2 Sat by Pulse 97 99 Oximetry 08/16/19 08/16/19 08/16/19 10:10 10:15 10:22 Temperature Pulse Rate 93 H 98 H 99 H Blood Pressure O2 Sat by Pulse 99 99 97 Oximetry 08/16/19 08/16/19 08/16/19 10:27 10:32 10:37 Temperature Pulse Rate 97 H 113 H 103 H Blood Pressure O2 Sat by Pulse 99 99 98 Oximetry 08/16/19 08/16/19 08/16/19 10:42 10:47 10:52 Temperature Pulse Rate 96 H 97 H 98 H Blood Pressure 190/105 O2 Sat by Pulse 98 97 96 Oximetry 08/16/19 08/16/19 08/16/19 10:57 11:02 11:07 Temperature Pulse Rate 116 H 115 H 111 H Blood Pressure O2 Sat by Pulse 98 99 86 Oximetry 08/16/19 08/16/19 08/16/19 11:08 11:12 11:13 Temperature Pulse Rate 100 H 94 H Blood Pressure 182/99 O2 Sat by Pulse 87 96 94 Oximetry 08/16/19 08/16/19 08/16/19 11:14 11:16 11:17 Temperature Pulse Rate 111 H 100 H 104 H Blood Pressure 176/95 184/88 O2 Sat by Pulse 99 Oximetry 08/16/19 08/16/19 08/16/19 11:18 11:19 11:22 Temperature Pulse Rate 105 H 106 H 84 Blood Pressure 165/90 161/81 O2 Sat by Pulse 0 L 99 Oximetry 08/16/19 08/16/19 08/16/19 11:24 11:26 11:27 Temperature Pulse Rate 82 81 89 Blood Pressure 159/82 145/59 O2 Sat by Pulse 98 Oximetry 08/16/19 08/16/19 08/16/19 11:28 11:30 11:32 Temperature Pulse Rate 81 73 79 Blood Pressure 145/67 141/67 140/69 O2 Sat by Pulse 100 Oximetry 08/16/19 08/16/19 08/16/19 11:34 11:35 11:37 Temperature Pulse Rate 70 76 74 Blood Pressure 135/69 140/73 O2 Sat by Pulse 99 Oximetry 08/16/19 08/16/19 08/16/19 11:38 11:39 11:42 Temperature Pulse Rate 74 71 76 Blood Pressure 132/70 130/68 131/71 O2 Sat by Pulse 96 Oximetry 08/16/19 08/16/19 08/16/19 11:43 11:46 11:47 Temperature Pulse Rate 73 72 88 Blood Pressure 126/66 126/63 O2 Sat by Pulse 96 Oximetry 08/16/19 08/16/19 08/16/19 11:48 11:49 11:52 Temperature Pulse Rate 75 77 78 Blood Pressure 137/84 141/82 133/75 O2 Sat by Pulse 98 Oximetry 08/16/19 08/16/19 08/16/19 11:53 11:56 11:57 Temperature Pulse Rate 74 73 69 Blood Pressure 136/75 133/74 136/74 O2 Sat by Pulse 98 Oximetry 08/16/19 08/16/19 08/16/19 11:59 12:01 12:02 Temperature Pulse Rate 78 77 79 Blood Pressure 132/71 129/71 O2 Sat by Pulse 96 Oximetry 08/16/19 08/16/19 08/16/19 12:03 12:05 12:07 Temperature Pulse Rate 74 77 71 Blood Pressure 127/68 131/73 138/82 O2 Sat by Pulse 98 Oximetry 08/16/19 08/16/19 08/16/19 12:10 12:12 12:14 Temperature Pulse Rate 76 74 75 Blood Pressure 133/79 135/80 131/78 O2 Sat by Pulse 98 Oximetry 08/16/19 08/16/19 08/16/19 12:15 12:17 12:19 Temperature Pulse Rate 74 73 74 Blood Pressure 134/80 136/83 O2 Sat by Pulse 85 98 Oximetry 08/16/19 08/16/19 08/16/19 12:20 12:23 12:24 Temperature Pulse Rate 75 73 72 Blood Pressure 133/85 137/73 O2 Sat by Pulse 98 Oximetry 08/16/19 08/16/19 08/16/19 12:26 12:28 12:29 Temperature Pulse Rate 79 74 73 Blood Pressure 145/76 138/72 O2 Sat by Pulse 98 Oximetry 08/16/19 08/16/19 08/16/19 12:30 12:32 12:34 Temperature Pulse Rate 71 74 73 Blood Pressure 139/73 142/70 129/62 O2 Sat by Pulse 96 Oximetry 08/16/19 08/16/19 08/16/19 12:35 12:36 12:38 Temperature Pulse Rate 72 73 74 Blood Pressure 127/61 129/66 O2 Sat by Pulse 93 Oximetry 08/16/19 08/16/19 08/16/19 12:40 12:42 12:44 Temperature Pulse Rate 81 67 74 Blood Pressure 138/83 142/79 140/79 O2 Sat by Pulse 98 Oximetry 08/16/19 08/16/19 08/16/19 12:45 12:46 12:48 Temperature Pulse Rate 84 85 78 Blood Pressure 143/85 137/60 O2 Sat by Pulse 98 Oximetry 08/16/19 08/16/19 12:50 12:52 Temperature Pulse Rate 70 75 Blood Pressure 135/62 136/66 O2 Sat by Pulse 98 Oximetry - Exam Breasts: deferred Cardiovascular: Regular rate Lungs: Normal air movement Abdomen: Present: normal appearance, soft. Absent: distention, tenderness Uterus: Present: normal FHR: auscultation normal, category 1 FHR comments: lates noted after epidural. resolved with fluid and position chg Cat 1 now Uterine Contraction Monitor Mode: Internal Cervical Dilatation: 4 (Internals placed) Cervical Effacement Percentage: 100 station: 0 Uterine Contraction Pattern: Regular Uterine Tone Measurement Phase: Resting Uterine Contraction Intensity: Moderate Extremities: edema Deep Tendon Reflex Grade: Normal +2 - Labs Labs: Abnormal Labs 08/13/19 08/13/19 08/13/19 22:45 22:45 23:00 RBC 3.49 L MCV 98 H MCH 34 H Lactate Dehydrogenase 268 H Urine WBC (Auto) 16.0 H
--- NOTE | 2019-08-16 13:38 | Event Note ---
Date: 08/16/19 (start MGSO4) Pt now in active labor Consulted with Dr Santizo Start MGSO4 Initiate Mag Protocol
[2019-08-16] MEDS ORDERED: MAGNESIUM SULFATE 40GM/1000ML 40 GM/1,000 ML BAG IV SCH (14:00)
[2019-08-16] MEDS ORDERED: SODIUM CHLORIDE 0.9% 1000 ML 1,000 ML ONE (15:33)
--- NOTE | 2019-08-16 16:01 | Progress Note ---
Assessment and Plan SVE 9,100,0 caput noted Pt in semi fowlers Anticipate delivery - Patient Problems (1) Mild pre-eclampsia in third trimester Onset Date: ~08/13/19 Current Visit: Yes Status: Acute Plan to address problem: MGSO4 transfusion @ 2gm/hr Subjective - Subjective Date of service: 08/16/19 (Cat 2 strip) Principal diagnosis: IUP @ 37w3d, IOL for mild pre-e Interval history: EDC Confirmation: 09/03/2019 Gestational Age: 22 4/7 weeks Past History : 1 Term Births: 0 Premature Births: 0 Living Children: 0 Para: 0 Mult. Births: 0 Prev : 0 Prev. attempt? 0 Aborta: 0 Elect. Ab: 0 Spont. Ab: 0 Ectopics: 0 Past Medical History: maybe htn? 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 of genital herpes: no Partner hx. of genital herpes: no Rash, Viral, or Febrile illness since last LMP? no Varicella/Chicken Pox Status: Immunized Genetic History Congenital Heart Defect: Mom: no Dad: no Trinity Disease: Mom: no Dad: no Thalassemia Mom: no Dad: no Neural Tube Defect Mom: no Dad: no Down's Syndrome Mom: no Dad: no Danielito-Sachs Mom: no Dad: no Sickle Cell Disease/Trait Mom: no Dad: no Hemophilia Mom: no Dad: no Muscular Dystrophy Mom: no Dad: no Cystic Fibrosis Mom: no Dad: no [place] Chorea Mom: no Dad: no Mental Retardation Mom: no Dad: no Fragile X Mom: no Dad: no Other Genetic/Chromosomal Disorder Mom: no Dad: no Child w/other defect Mom: no Dad: no Enviromental Exposures Xray Exposure: no Medication, drug, or alcohol use since LMP: no Chemical/Other Exposure: no Exposure to Cat Liter: no Hx of Parvovirus (Fifth Disease): no Occupational Exposure to Children: none Active Medications (reviewed today): PLUS 27-1 MG ORAL TABLET ( VIT-FE FUMARATE-FA) 1 po daily Current Allergies (reviewed today): No known allergies Patient reports: movement normal, no new complaints (denies VALDERRAMA, visual changes or epigastric pain) Objective - Vital Signs Vital Signs: Vital Signs - 12hr 08/16/19 08/16/19 08/16/19 04:03 04:19 04:35 Temperature Pulse Rate 86 83 93 H Blood Pressure 152/82 141/96 168/95 O2 Sat by Pulse Oximetry 08/16/19 08/16/19 08/16/19 04:49 05:19 05:33 Temperature Pulse Rate 88 77 83 Blood Pressure 158/79 137/63 126/60 O2 Sat by Pulse Oximetry 08/16/19 08/16/19 08/16/19 05:48 06:05 08:52 Temperature Pulse Rate 83 92 H 87 Blood Pressure 131/61 141/82 133/74 O2 Sat by Pulse Oximetry 08/16/19 08/16/19 08/16/19 08:56 08:57 09:00 Temperature 98.6 F Pulse Rate Blood Pressure O2 Sat by Pulse 72 L 88 Oximetry 08/16/19 08/16/19 08/16/19 09:01 09:06 09:11 Temperature Pulse Rate 93 H 89 91 H Blood Pressure O2 Sat by Pulse 100 99 99 Oximetry 08/16/19 08/16/19 08/16/19 09:16 09:29 09:31 Temperature Pulse Rate 98 H 97 H 96 H Blood Pressure 164/92 O2 Sat by Pulse 100 99 Oximetry 08/16/19 08/16/19 08/16/19 09:32 09:34 09:39 Temperature Pulse Rate 92 H 97 H 95 H Blood Pressure 161/92 159/85 O2 Sat by Pulse 99 99 Oximetry 08/16/19 08/16/19 08/16/19 09:44 09:49 09:51 Temperature Pulse Rate 110 H 93 H 90 Blood Pressure 144/77 O2 Sat by Pulse 98 97 Oximetry 08/16/19 08/16/19 08/16/19 10:05 10:10 10:15 Temperature Pulse Rate 93 H 93 H 98 H Blood Pressure O2 Sat by Pulse 99 99 99 Oximetry 08/16/19 08/16/19 08/16/19 10:22 10:27 10:32 Temperature Pulse Rate 99 H 97 H 113 H Blood Pressure O2 Sat by Pulse 97 99 99 Oximetry 08/16/19 08/16/19 08/16/19 10:37 10:42 10:47 Temperature Pulse Rate 103 H 96 H 97 H Blood Pressure O2 Sat by Pulse 98 98 97 Oximetry 08/16/19 08/16/19 08/16/19 10:52 10:57 11:02 Temperature Pulse Rate 98 H 116 H 115 H Blood Pressure 190/105 O2 Sat by Pulse 96 98 99 Oximetry 08/16/19 08/16/19 08/16/19 11:07 11:08 11:12 Temperature Pulse Rate 111 H 100 H Blood Pressure 182/99 O2 Sat by Pulse 86 87 96 Oximetry 08/16/19 08/16/19 08/16/19 11:13 11:14 11:16 Temperature Pulse Rate 94 H 111 H 100 H Blood Pressure 176/95 184/88 O2 Sat by Pulse 94 Oximetry 08/16/19 08/16/19 08/16/19 11:17 11:18 11:19 Temperature Pulse Rate 104 H 105 H 106 H Blood Pressure 165/90 O2 Sat by Pulse 99 0 L Oximetry 08/16/19 08/16/19 08/16/19 11:22 11:24 11:26 Temperature Pulse Rate 84 82 81 Blood Pressure 161/81 159/82 145/59 O2 Sat by Pulse 99 Oximetry 08/16/19 08/16/19 08/16/19 11:27 11:28 11:30 Temperature Pulse Rate 89 81 73 Blood Pressure 145/67 141/67 O2 Sat by Pulse 98 Oximetry 08/16/19 08/16/19 08/16/19 11:32 11:34 11:35 Temperature Pulse Rate 79 70 76 Blood Pressure 140/69 135/69 140/73 O2 Sat by Pulse 100 Oximetry 08/16/19 08/16/19 08/16/19 11:37 11:38 11:39 Temperature Pulse Rate 74 74 71 Blood Pressure 132/70 130/68 O2 Sat by Pulse 99 Oximetry 08/16/19 08/16/19 08/16/19 11:42 11:43 11:46 Temperature Pulse Rate 76 73 72 Blood Pressure 131/71 126/66 126/63 O2 Sat by Pulse 96 Oximetry 08/16/19 08/16/19 08/16/19 11:47 11:48 11:49 Temperature Pulse Rate 88 75 77 Blood Pressure 137/84 141/82 O2 Sat by Pulse 96 Oximetry 08/16/19 08/16/19 08/16/19 11:52 11:53 11:56 Temperature Pulse Rate 78 74 73 Blood Pressure 133/75 136/75 133/74 O2 Sat by Pulse 98 Oximetry 08/16/19 08/16/19 08/16/19 11:57 11:59 12:00 Temperature 98.3 F Pulse Rate 69 78 Blood Pressure 136/74 132/71 O2 Sat by Pulse 98 Oximetry 08/16/19 08/16/19 08/16/19 12:01 12:02 12:03 Temperature Pulse Rate 77 79 74 Blood Pressure 129/71 127/68 O2 Sat by Pulse 96 Oximetry 08/16/19 08/16/19 08/16/19 12:05 12:07 12:10 Temperature Pulse Rate 77 71 76 Blood Pressure 131/73 138/82 133/79 O2 Sat by Pulse 98 Oximetry 08/16/19 08/16/19 08/16/19 12:12 12:14 12:15 Temperature Pulse Rate 74 75 74 Blood Pressure 135/80 131/78 134/80 O2 Sat by Pulse 98 Oximetry 08/16/19 08/16/19 08/16/19 12:17 12:19 12:20 Temperature Pulse Rate 73 74 75 Blood Pressure 136/83 133/85 O2 Sat by Pulse 85 98 Oximetry 08/16/19 08/16/19 08/16/19 12:23 12:24 12:26 Temperature Pulse Rate 73 72 79 Blood Pressure 137/73 145/76 O2 Sat by Pulse 98 Oximetry 08/16/19 08/16/19 08/16/19 12:28 12:29 12:30 Temperature Pulse Rate 74 73 71 Blood Pressure 138/72 139/73 O2 Sat by Pulse 98 Oximetry 08/16/19 08/16/19 08/16/19 12:32 12:34 12:35 Temperature Pulse Rate 74 73 72 Blood Pressure 142/70 129/62 O2 Sat by Pulse 96 93 Oximetry 08/16/19 08/16/19 08/16/19 12:36 12:38 12:40 Temperature Pulse Rate 73 74 81 Blood Pressure 127/61 129/66 138/83 O2 Sat by Pulse 98 Oximetry 08/16/19 08/16/1920 12:42 12:44 12:45 Temperature Pulse Rate 67 74 84 Blood Pressure 142/79 140/79 O2 Sat by Pulse 98 Oximetry 08/16/19 08/16/19 08/16/19 12:46 12:48 12:50 Temperature Pulse Rate 85 78 70 Blood Pressure 143/85 137/60 135/62 O2 Sat by Pulse 98 Oximetry 08/16/19 08/16/19 08/16/19 12:52 12:54 12:55 Temperature Pulse Rate 75 86 74 Blood Pressure 136/66 139/66 O2 Sat by Pulse 97 Oximetry 08/16/19 08/16/19 08/16/19 12:56 12:58 13:00 Temperature 98.3 F Pulse Rate 73 75 74 Blood Pressure 137/69 142/72 O2 Sat by Pulse 97 Oximetry 08/16/19 08/16/19 08/16/19 13:05 13:10 13:15 Temperature Pulse Rate 79 79 72 Blood Pressure O2 Sat by Pulse 96 98 97 Oximetry 08/16/19 08/16/19 08/16/19 13:20 13:25 13:29 Temperature Pulse Rate 74 73 76 Blood Pressure 160/88 O2 Sat by Pulse 98 97 94 Oximetry 08/16/19 08/16/19 08/16/19 13:30 13:35 13:40 Temperature Pulse Rate 74 75 76 Blood Pressure O2 Sat by Pulse 96 93 97 Oximetry 08/16/19 08/16/19 08/16/19 13:42 13:45 13:50 Temperature Pulse Rate 75 75 76 Blood Pressure O2 Sat by Pulse 91 99 100 Oximetry 08/16/19 08/16/19 08/16/19 13:56 13:58 13:59 Temperature Pulse Rate 81 76 Blood Pressure 172/97 O2 Sat by Pulse 100 92 Oximetry 08/16/19 08/16/19 08/16/19 14:00 14:01 14:06 Temperature 98.5 F Pulse Rate 83 89 Blood Pressure O2 Sat by Pulse 99 100 Oximetry 08/16/19 08/16/19 08/16/19 14:11 14:16 14:21 Temperature Pulse Rate 86 93 H 96 H Blood Pressure O2 Sat by Pulse 98 99 95 Oximetry 08/16/19 08/16/19 08/16/19 14:24 14:26 14:27 Temperature Pulse Rate 86 100 H 94 H Blood Pressure 151/70 O2 Sat by Pulse 95 93 Oximetry 08/16/19 08/16/19 08/16/19 14:29 14:31 14:32 Temperature Pulse Rate 101 H 94 H 95 H Blood Pressure 139/78 O2 Sat by Pulse 94 92 Oximetry 08/16/19 08/16/19 08/16/19 14:36 14:38 14:41 Temperature Pulse Rate 94 H 98 H 95 H Blood Pressure O2 Sat by Pulse 95 93 97 Oximetry 08/16/19 08/16/19 08/16/19 14:46 14:51 14:56 Temperature Pulse Rate 85 86 92 H Blood Pressure O2 Sat by Pulse 100 99 97 Oximetry 08/16/19 08/16/19 08/16/19 14:59 15:01 15:06 Temperature Pulse Rate 93 H 91 H 89 Blood Pressure 133/70 O2 Sat by Pulse 91 79 L 98 Oximetry 08/16/19 08/16/19 08/16/19 15:11 15:16 15:21 Temperature Pulse Rate 82 84 80 Blood Pressure O2 Sat by Pulse 97 98 98 Oximetry 08/16/19 08/16/19 08/16/19 15:23 15:26 15:30 Temperature Pulse Rate 102 H 97 H 92 H Blood Pressure 128/93 O2 Sat by Pulse 92 98 Oximetry 08/16/19 08/16/19 08/16/19 15:31 15:36 15:38 Temperature Pulse Rate 96 H 92 H 87 Blood Pressure 132/64 O2 Sat by Pulse 96 93 Oximetry 08/16/19 08/16/19 08/16/19 15:41 15:46 15:49 Temperature 99.9 F H Pulse Rate 86 80 102 H Blood Pressure O2 Sat by Pulse 100 98 91 Oximetry 08/16/19 15:51 Temperature Pulse Rate 103 H Blood Pressure O2 Sat by Pulse 93 Oximetry - Exam Breasts: deferred Cardiovascular: Regular rate Lungs: Normal air movement Abdomen: Present: normal appearance, soft. Absent: distention, tenderness Uterus: Present: normal FHR: auscultation normal, category 2 FHR comments: Resolution of variable decels with position chges, pit off, O2 on SVE 9,100,0 Caput Uterine Contraction Monitor Mode: Internal Cervical Dilatation: 9 Cervical Effacement Percentage: 100 station: 0 Uterine Contraction Pattern: Regular Uterine Tone Measurement Phase: Resting Uterine Contraction Intensity: Strong/Firm Extremities: edema Deep Tendon Reflex Grade: Normal +2 - Labs Labs: Abnormal Labs 08/13/19 08/13/19 08/13/19 22:45 22:45 23:00 RBC 3.49 L MCV 98 H MCH 34 H Lactate Dehydrogenase 268 H Urine WBC (Auto) 16.0 H
[2019-08-16] MEDS ORDERED: SODIUM CHLORIDE 0.9% 1000 ML 1,000 ML VG SCH (17:30)
[2019-08-16] MEDS ORDERED: BICITRA ORAL LIQD 30ML PO ONE (17:59)
[2019-08-16] MEDS ORDERED: FAMOTIDINE 20 MG/2 ML INJ IV ONE (17:59)
[2019-08-16] MEDS ORDERED: METOCLOPRAMIDE 10 MG/2 ML INJ IV ONE (17:59)
[2019-08-16] MEDS ORDERED: OXYTOCIN 20 UNIT/1000ML DRIP 20 UNITS/1,000 ML BAG IV SCH ×2 (18:00→20:00)
[2019-08-16] MEDS ORDERED: ceFAZolin/Water 2 GM/20 ML 2 GM/20 ML SYRINGE IV NR (18:00)
[2019-08-16] MEDS ORDERED: LACTATED RINGERS 1,000 ML IV SCH (18:00)
--- NOTE | 2019-08-16 18:03 | Event Note ---
<AP HANSON - Last Filed: 08/16/19 18:01> Date: 08/16/19 (attempted to push; john to 90BPM; persistent OP) After several attempts to rotate head, with maternal effort John continues to 90BMP Recovers to 120 w/o pushing Dr Santizo called to bedside. Decision to move to operative delivery Consents signed Preop orders in EMR <WARREN SANTIZO - Last Filed: 08/16/19 18:05> Risk associated with delivery were discussed, including but not limited to, bleeding that may require blood transfusion, infection that may be life threatening, injury to adjacent organs specifically bowel or bladder that may require further surgeries, or major vascular injury. She was also informed that when she has had a delivery she may require repeat deliveries for all subsequent pregnancies. Questions were encouraged and answered, consents were reviewed and signed. Patient voiced understanding and desires to proceed with delivery.
[2019-08-16] MEDS ORDERED: LIDOCAINE 2%/EPINEPHRINE 1:200,000 VIAL (20 ML) INFILTRATI ONE (18:08)
[2019-08-16] MEDS ORDERED: OXYTOCIN 10 UNIT/1 ML INJ ONE (18:08)
[2019-08-16] MEDS ORDERED: BUPIVACAINE/PF (0.5%) 5 MG/1 ML 30 ML VIAL INFILTRATI ONE (18:08)
[2019-08-16] MEDS ORDERED: KETOROLAC 30 MG/1 ML INJ ONE (18:08)
[2019-08-16] MEDS ORDERED: dexAMETHasone 20 MG/5 ML VIAL ONE (18:08)
[2019-08-16] MEDS ORDERED: SODIUM BICARB 8.4% 50 MEQ/50 ML VIAL IV ONE (18:08)
[2019-08-16] MEDS ORDERED: SODIUM CHLORIDE 0.9% IRR 1,500 ML BOTTLE IR ONE (18:40)
[2019-08-16] MEDS ORDERED: WATER FOR IRRIG STERILE 1,500 ML BOTTLE IR ONE (18:40)
[2019-08-16] MEDS ORDERED: CARBOPROST TROMETHAMINE 250 MCG/1 ML INJ IM ONE ×3 (18:45→19:37)
[2019-08-16] MEDS ORDERED: miSOPROStol 200 MCG TAB ONE (18:50)
[2019-08-16] MEDS ORDERED: miSOPROStol 200 MCG TAB PR ONE (19:09)
[2019-08-16] MEDS ORDERED: NALOXONE 0.4 MG/1 ML INJ IV PRN (19:10)
[2019-08-16] MEDS ORDERED: LANOLIN/ZINC/DIMETHICONE (LANSINOH) 7 GM TP PRN ×2 (19:10→22:51)
[2019-08-16] MEDS ORDERED: KETOROLAC 30 MG/1 ML INJ IV PRN ×2 (19:10)
[2019-08-16] MEDS ORDERED: WITCH HAZEL/ GLYCERIN PAD TP PRN (19:10)
[2019-08-16] MEDS ORDERED: DIPHENOXYLATE/ATROPINE TAB PO PRN (19:30)
--- NOTE | 2019-08-16 19:34 | Operative Report ---
Operative Report Operative Report: Date of operation: 08/16/2019 Pre-operative diagnosis: 1. 37 weeks gestational age 2. Preeclampsia 3. intolerance to second stage of labor 4. BMI 37 kg/m 5. Persistent occiput posterior Post-operative diagnosis: 1. 37 weeks gestational age 2. Preeclampsia 3. intolerance to second stage of labor 4. BMI 37 kg/m 5. Persistent occiput posterior Procedure name(s): Primary low transverse delivery Surgeon: Mae Santizo MD Coat Room Attendant: Nicky Paris CNM Anesthesia: Epidural EBL: 800 mL Urine output: 100 mL of clear urine out at the end of the procedure Fluids: 1500 mL Findings: Liveborn male weight 6 Lbs. 13 oz. Apgars of 5 and 8 at one and 5 minutes Indications: [] Procedure: Patient was taking to the operating room. []l anesthesia was []. Patient was then prepped and draped in the usual sterile fashion Timeout was performed. Once an appropriate level of anesthesia was noted, a Pfannenstiel incision was made and extended the fascia which was incised and extended lateral direction. The overlying fascia was sharply dissected away from the underlying rectus muscles in the superior inferior direction. The midline was entered bluntly. Bladder blade was placed. Vesicouterine fold was incised with blunt dissection bladder flap was created. A transverse incision was made in the lower uterine segment and extended superolateral direction with finger fractionation. [] fluid was noted. was delivered from the [] position, with spontaneous cry and excellent tone. Mouth and nose bulb suctioned. Cord was doubly clamped and cut was given to the resuscitation team present. Placenta was delivered. The uterus was exteriorized and cleaned of any further placental tissue and products of conception. Uterine incision was approximated using 0 Vicryl in a running interlocking stitch followed by further suture of 0 Vicryl in imbricating fashion. When hemostasis was noted the uterus was allowed back in the pelvic cavity. Pelvis was irrigated with warm normal saline. Once hemostasis was noted the rectus muscles were approximated using 0 Vicryl interrupted simple stitches 3. Once hemostasis was noted the fascia was approximated using 0 Vicryl simple running stitch. The incision was irrigated with warm saline, once hemostasis as noted, the subcuticular adipose tissue was reapproximated using 3-0 Vicryl in a simple running fashion. Skin was approximated using 4-0 Vicryl on a Bakari needle in a subcuticular manner. Counts were correct x3.
--- NOTE | 2019-08-16 20:52 | Post Anesthesia Evaluation ---
- Post Anesthesia Evaluation Patient Participated: Yes Airway Patent: Yes Stable Respiratory Function: Yes Nausea/Vomiting: No Temp > 96.8F: Yes Pain Manageable: Yes Adequeate Hydration: Yes Anesthesia Complications: No Block Receding Appropriately: Yes
[2019-08-16] MEDS ORDERED: MAGNESIUM SULFATE 40GM/1000ML 40 GM/1,000 ML BAG IV ONE (21:33)
[2019-08-16] MEDS ORDERED: hydrALAZINE 20 MG/1 ML INJ IV ONE (22:19)
[2019-08-16] MEDS ORDERED: MORPHINE 4 MG/1 ML INJ ONE (22:43)
[2019-08-16] MEDS ORDERED: MORPHINE 4 MG/1 ML INJ IV ONE (22:44)
[2019-08-16] MEDS ORDERED: SIMETHICONE 80 MG CHEW TAB PO PRN (22:51)
[2019-08-16] MEDS ORDERED: MORPHINE 4 MG/1 ML INJ IV PRN (22:51)
[2019-08-16] MEDS ORDERED: MORPHINE 2 MG/1 ML INJ IV PRN (22:51)
[2019-08-17] MEDS ORDERED: hydrALAZINE 20 MG/1 ML INJ IV ONE (01:29)
[2019-08-17] MEDS: ceFAZolin/NS 1 GM/50 ML 1 GM/50 ML BAG IV SCH ×2 (02:38→10:39)
--- NOTE | 2019-08-17 05:49 | Event Note ---
Date: 08/17/19 (LATE ENTRY) Received call from RN @ 2230 pt having BP 170/100 Apresolin ordered and given Instructed to CB in 30min. [place] from RN again in 1 1/2 hours BP still 180/[address] Santizo called and gave orders to give second dose of Apresoline and to increase Labetalol to 300mg TID. From 0300 to 0500 BP 160-130/80-60 Pt resting comfortably No c/o VALDERRAMA, blurred vision, chest pain.
[2019-08-17] MEDS ORDERED: MEASLES, MUMPS & RUBELLA 12,500 UNIT/0.5 ML VACCINE SUB-Q ONE ×2 (06:00→08:00)
[2019-08-17] MEDS ORDERED: DIPHtheria,PERTUSSIS(ACELL),TETANUS VACCINE/PF 0.5 ML VIAL IM ONE ×2 (06:00→08:00)
[2019-08-17] MEDS ORDERED: ZOLPIDEM 5 MG TAB ONE (06:09)
[2019-08-17 07:55] LABS: Hematocrit 34.1 % (30.3-42.9); Hemoglobin 11.4 gm/dl (10.1-14.3)
[2019-08-17] MEDS ORDERED: MAGNESIUM SULFATE 40GM/1000ML 40 GM/1,000 ML BAG IV SCH (08:01)
--- NOTE | 2019-08-17 08:43 | Progress Note ---
Assessment and Plan patient resting w/o complaints. output adequate. postop H&H 11.4/34.1. afebrile, b/p's mostly 130-150's/70-80. Incision dressed - d&I. pt denies VALDERRAMA/visual changes or epigastic pain. encouraged . - Patient Problems (1) Mild pre-eclampsia in third trimester Onset Date: ~08/13/19 Current Visit: Yes Status: Acute Plan to address problem: Continue mag sulfate and q6hr mag levels until 1900 tonight strict I&O Monitor for s/s worsening pre-e (2) delivery delivered Current Visit: Yes Status: Acute Plan to address problem: continue postop pathway Subjective - Subjective Date of service: 08/17/19 Principal diagnosis: postop day #1 s/p primary c/s; mild pre-e Patient reports: appetite normal, pain well controlled, no nauseated [place]: doing well, nursing well (breast and bottle feeding) Objective - Vital Signs Latest vital signs: Vital Signs Temp Pulse Resp BP BP Pulse Ox 08/17/19 08:33 97 H 143/71 08/17/19 08:18 110 H 151/70 08/17/19 08:14 102 H 151/74 08/17/19 08:03 102 H 151/74 08/17/19 08:00 98.4 F 110 H 16 151/70 08/17/19 07:49 100 H 155/78 08/17/19 07:34 104 H 174/91 08/17/19 07:18 96 H 131/84 08/17/19 06:49 104 H 120/79 08/17/19 06:35 14 08/17/19 06:34 108 H 145/66 08/17/19 06:19 106 H 165/76 08/17/19 05:56 33 L 90 08/17/19 05:54 103 H 96 08/17/19 05:49 106 H 96 08/17/19 05:48 108 H 131/62 08/17/19 05:44 101 H 96 08/17/19 05:39 102 H 96 08/17/19 05:35 15 95 08/17/19 05:34 102 H 95 08/17/19 05:33 105 H 134/60 08/17/19 05:29 100 H 95 08/17/19 05:24 104 H 95 08/17/19 05:19 103 H 95 08/17/19 05:18 101 H 132/55 08/17/19 05:14 98 H 95 08/17/19 05:09 99 H 96 08/17/19 05:04 99 H 96 08/17/19 05:03 102 H 135/61 08/17/19 04:59 97 H 95 08/17/19 04:54 95 H 96 08/17/19 04:49 95 H 97 08/17/19 04:48 104 H 131/62 08/17/19 04:44 98 H 97 08/17/19 04:39 100 H 97 08/17/19 04:37 20 08/17/19 04:35 18 08/17/19 04:34 96 H 146/65 98 08/17/19 04:29 99 H 98 08/17/19 04:24 103 H 98 08/17/19 04:19 102 H 98 08/17/19 04:18 104 H 162/75 08/17/19 04:14 102 H 98 08/17/19 04:04 100 H 166/82 08/17/19 03:35 18 08/17/19 03:34 107 H 157/82 08/17/19 03:18 107 H 160/82 08/17/19 03:07 104 H 180/89 08/17/19 03:01 102 H 99 08/17/19 02:56 98 H 99 08/17/19 02:51 97 H 99 08/17/19 02:48 98 H 149/76 08/17/19 02:46 98 H 98 08/17/19 02:41 95 H 98 08/17/19 02:36 106 H 100 08/17/19 02:35 16 08/17/19 02:33 94 H 134/69 08/17/19 02:31 91 H 98 08/17/19 02:26 96 H 99 08/17/19 02:21 101 H 99 08/17/19 02:18 92 H 131/67 08/17/19 02:16 92 H 98 08/17/19 02:11 97 H 98 08/17/19 02:06 92 H 98 08/17/19 02:03 95 H 148/80 08/17/19 02:01 101 H 99 08/17/19 01:56 106 H 99 08/17/19 01:51 96 H 99 08/17/19 01:48 96 H 148/81 08/17/19 01:46 91 H 98 08/17/19 01:41 93 H 98 08/17/19 01:36 93 H 99 08/17/19 01:35 15 08/17/19 01:33 96 H 155/87 08/17/19 01:32 96 H 94 08/17/19 01:31 98 H 97 08/17/19 01:26 96 H 98 08/17/19 01:21 97 H 98 08/17/19 01:18 103 H 157/89 08/17/19 01:16 106 H 99 08/17/19 01:11 100 H 100 08/17/19 01:09 99 H 160/80 08/17/19 01:06 97 H 100 08/17/19 01:03 96 H 160/88 08/17/19 01:01 103 H 100 08/17/19 00:56 100 H 99 08/17/19 00:51 102 H 100 08/17/19 00:49 106 H 159/88 08/17/19 00:46 110 H 99 08/17/19 00:41 107 H 100 08/17/19 00:36 110 H 99 08/17/19 00:35 16 08/17/19 00:33 110 H 173/103 08/17/19 00:31 119 H 100 08/17/19 00:26 116 H 100 08/17/19 00:21 121 H 100 08/17/19 00:18 109 H 172/96 08/17/19 00:03 111 H 166/95 08/17/19 00:01 112 H 99 08/16/19 23:56 105 H 99 08/16/19 23:51 105 H 100 08/16/19 23:48 109 H 165/99 08/16/19 23:46 110 H 100 08/16/19 23:40 108 H 100 08/16/19 23:35 107 H 18 100 08/16/19 23:33 106 H 166/90 08/16/19 23:30 104 H 99 08/16/19 23:25 108 H 100 08/16/19 23:22 18 08/16/19 23:20 111 H 99 08/16/19 23:18 109 H 165/96 08/16/19 23:15 111 H 99 08/16/19 23:13 110 H 88 08/16/19 23:10 111 H 80 L 08/16/19 23:06 109 H 94 08/16/19 23:05 113 H 94 08/16/19 23:00 110 H 100 08/16/19 22:57 110 H 92 08/16/19 22:54 104 H 100 08/16/19 22:52 18 08/16/19 22:49 101 H 175/94 92 08/16/19 22:44 104 H 84 08/16/19 22:43 95 H 80 L 08/16/19 22:39 96 H 94 08/16/19 22:37 98 H 180/110 08/16/19 22:36 94 H 92 08/16/19 22:34 98 H 100 08/16/19 22:29 96 H 96 08/16/19 22:26 104 H 94 08/16/19 22:24 103 H 100 08/16/19 22:20 99 H 93 08/16/19 22:19 98 H 97 08/16/19 22:17 93 H 180/110 08/16/19 22:14 97 H 98 08/16/19 22:11 93 H 174/108 08/16/19 22:09 91 H 100 08/16/19 22:04 84 99 08/16/19 21:59 84 99 08/16/19 21:54 89 100 08/16/19 21:49 88 99 08/16/19 21:47 83 175/102 08/16/19 21:44 86 99 08/16/19 21:39 87 100 08/16/19 21:35 98.5 F 16 100 08/16/19 21:34 93 H 100 08/16/19 21:29 91 H 99 08/16/19 21:24 88 100 08/16/19 21:19 87 99 08/16/19 21:17 93 H 176/95 08/16/19 20:41 100 H 20 139/99 98 08/16/19 20:23 100 H 16 150/87 97 08/16/19 20:08 103 H 26 H 153/91 97 08/16/19 19:53 110 H 18 139/97 100 05/07/20 19:47 107 H 18 136/103 99 05/0720 19:43 99.1 F 110 H 17 139/97 99 050720 18:09 97 H 100 05 18:04 100 H 100 0507 17:59 97 H 156/92 100 05 17:54 85 100 05/0720 17:48 83 100 0507 17:43 110 H 99 0507 17:32 93 H 100 0507 17:29 86 156/85 050720 17:27 95 H 100 0507 17:22 98 H 100 0507 17:17 98 H 100 05 17:12 97 H 100 05 17:07 97 H 100 05 17:02 103 H 100 08/16/19 16:58 91 H 143/82 05 16:56 90 100 0507 16:51 89 100 050720 16:46 91 H 100 0507 16:41 93 H 100 050720 16:36 92 H 100 05/0720 16:31 94 H 100 050720 16:29 90 146/94 05/07 16:26 93 H 100 0507 16:21 89 100 050720 16:16 96 H 100 07 16:11 96 H 100 05/0720 16:06 98 H 100 05 16:01 105 H 100 05 16:00 113 H 136/72 05 15:51 103 H 93 050720 15:49 102 H 91 05/0720 15:46 80 98 05/07/20 15:41 99.9 F H 86 100 05/0720 15:38 87 132/64 05/0720 15:36 92 H 93 05/0720 15:31 96 H 96 05/0720 15:30 92 H 128/93 05/0720 15:26 97 H 98 05/07/20 15:23 102 H 92 05/0720 15:21 80 98 05/07/20 15:16 84 98 05/0720 15:11 82 97 05/07/20 15:06 89 98 05 15:01 91 H 79 L 08/16/19 14:59 93 H 133/70 91 08/16/19 14:56 92 H 97 08/16/19 14:51 86 99 08/16/19 14:46 85 100 08/16/19 14:41 95 H 97 08/16/19 14:38 98 H 93 08/16/19 14:36 94 H 95 08/16/19 14:32 95 H 92 08/16/19 14:31 94 H 94 08/16/19 14:29 101 H 139/78 08/16/19 14:27 94 H 93 08/16/19 14:26 100 H 95 08/16/19 14:24 86 151/70 08/16/19 14:21 96 H 95 08/16/19 14:16 93 H 99 08/16/19 14:11 86 98 08/16/19 14:06 89 100 08/16/19 14:01 83 99 08/16/19 14:00 98.5 F 08/16/19 13:59 76 172/97 08/16/19 13:58 92 08/16/19 13:56 81 100 08/16/19 13:50 76 100 05 13:45 75 99 08/16/19 13:42 75 91 08/16/19 13:40 76 97 08/16/19 13:35 75 93 08/16/19 13:30 74 96 08/16/19 13:29 76 160/88 94 08/16/19 13:25 73 97 08/16/19 13:20 74 98 0507 13:15 72 97 05 13:10 79 98 05 13:05 79 96 05 13:00 98.3 F 74 97 0507 12:58 75 142/72 050720 12:56 73 137/69 0507 12:55 74 97 050720 12:54 86 139/66 0507 12:52 75 136/66 05/0720 12:50 70 135/62 98 0507 12:48 78 137/60 0507 12:46 85 143/85 05/07/20 12:45 84 98 05/07/20 12:44 74 140/79 05/07/20 12:42 67 142/79 05/07/20 12:40 81 138/83 98 05/07/20 12:38 74 129/66 05/07/20 12:36 73 127/61 05/07/20 12:35 72 93 05/07/20 12:34 73 129/62 96 05/07/20 12:32 74 142/70 05/07/20 12:30 71 139/73 05/07/20 12:29 73 98 05/07/20 12:28 74 138/72 05/07/20 12:26 79 145/76 05/07/20 12:24 72 98 05/07/20 12:23 73 137/73 05/07/20 12:20 75 133/85 05/07/20 12:19 74 98 05/07/20 12:17 73 136/83 85 05/07/20 12:15 74 134/80 05/07/20 12:14 75 131/78 05/07/20 12:12 74 135/80 98 05/07/20 12:10 76 133/79 05/07/20 12:07 71 138/82 98 05/07/20 12:05 77 131/73 05/07/20 12:03 74 127/68 05/07/20 12:02 79 96 05/07/20 12:01 77 129/71 05/07/20 12:00 98.3 F 05/07/20 11:59 78 132/71 05/07/20 11:57 69 136/74 98 05/07/20 11:56 73 133/74 05/07/20 11:53 74 136/75 05/07/20 11:52 78 133/75 98 05/07/20 11:49 77 141/82 05/07/20 11:48 75 137/84 05/07/20 11:47 88 96 05/07/20 11:46 72 126/63 05/07/20 11:44 18 05/07/20 11:43 73 126/66 05/07/20 11:42 76 131/71 96 05/07/20 11:39 71 130/68 05/07/20 11:38 74 132/70 05/07/20 11:37 74 99 05/07/20 11:35 76 140/73 08/16/19 11:34 70 135/69 08/16/19 11:32 79 140/69 100 08/16/19 11:30 73 141/67 08/16/19 11:28 81 145/67 08/16/19 11:27 89 98 08/16/19 11:26 81 145/59 08/16/19 11:24 82 159/82 08/16/19 11:22 84 161/81 99 08/16/19 11:19 106 H 0 L 08/16/19 11:18 105 H 165/90 08/16/19 11:17 104 H 99 08/16/19 11:16 100 H 184/88 08/16/19 11:14 111 H 176/95 08/16/19 11:13 94 H 94 08/16/19 11:12 100 H 182/99 96 08/16/19 11:08 87 08/16/19 11:07 111 H 86 08/16/19 11:02 115 H 99 08/16/19 10:57 116 H 98 08/16/19 10:52 98 H 190/105 96 08/16/19 10:47 97 H 97 08/16/19 10:42 96 H 98 08/16/19 10:37 103 H 98 08/16/19 10:32 113 H 99 08/16/19 10:27 97 H 99 08/16/19 10:22 99 H 97 08/16/19 10:15 98 H 99 08/16/19 10:10 93 H 99 08/16/19 10:05 93 H 99 08/16/19 09:51 90 144/77 08/16/19 09:49 93 H 97 08/16/19 09:44 110 H 98 08/16/19 09:39 95 H 99 08/16/19 09:34 97 H 159/85 99 08/16/19 09:32 92 H 161/92 08/16/19 09:31 96 H 164/92 08/16/19 09:29 97 H 99 08/16/19 09:16 98 H 100 08/16/19 09:11 91 H 99 08/16/19 09:06 89 99 08/16/19 09:01 93 H 100 08/16/19 09:00 98.6 F 05//20 08:57 88 08/16/19 08:56 72 L 08/16/19 08:52 87 133/74 Intake and Output 08/16/19 08/17/19 08/17/19 23:59 07:59 15:59 Intake Total 1500 Output Total 2350 2100 200 Balance -850 -2100 -200 Intake: IV 1500 Output: Urine 235 2100 200 Indwelling Catheter 235 2100 200 Other: Total, Output Amount 900 250 200 Estimated Blood Loss 800 - Exam Breasts: Present: normal, Cardiovascular: Present: Regular rate Lungs: Present: Clear to auscultation, Normal air movement Abdomen: Present: normal appearance, soft Vulva: both: normal Uterus: Present: normal, firm, fundal height below umbilicus Extremities: Present: normal Deep Tendon Reflex Grade: Normal +2 Incision: Present: normal, dry, dressed - Labs Labs: Abnormal lab results 08/16/19 08/17/19 Range/Units 20:05 00:52 Magnesium 3.60 H 4.70 H (1.7-2.3) mg/dL
[2019-08-17] MEDS: FERROUS SULFATE 325 MG TAB PO SCH ×2 (10:39→22:03)
[2019-08-17] MEDS ORDERED: IBUPROFEN 800 MG TAB PO PRN (20:00)
[2019-08-17] MEDS: oxyCODONE /ACETAMINOPHEN 5-325MG TAB PO PRN (22:05)
[2019-08-18] MEDS ORDERED: diphenhydrAMINE 25 MG CAP PO PRN (02:39)
[2019-08-18] MEDS: oxyCODONE /ACETAMINOPHEN 5-325MG TAB PO PRN (05:20)
[2019-08-18] MEDS ORDERED: DIPHtheria,PERTUSSIS(ACELL),TETANUS VACCINE/PF 0.5 ML VIAL IM ONE (06:00)
--- NOTE | 2019-08-18 08:59 | Discharge Summary ---
Providers - Providers Date of Admission: 08/13/19 20:34 Date of discharge: 08/18/19 Attending physician: BRYANT SMITH Primary care physician: BRYANT SMITH Hospitalization Reason for admission: section, induction of labor (for mild pre E) Delivery: Procedure: section Procedure details: see op note Incision: normal, dry, intact, other (open to air) Other procedures: none complications: other (elevated blood pressures that responded well to ) Discharge diagnosis: IUP at term delivered baby: male Hospital course: Pt admited for IOL underwent c/s. Post op course complicated by elevated blood pressures that responded well to bp med. Pt to be d/c home today if remains AFVSS and f/u in 1 week in the office for a bp check. Condition at discharge: Good Disposition: DC-01 TO HOME OR SELFCARE - Discharge Diagnoses (1) delivery delivered Status: Acute (2) Hypertension affecting Status: Acute (3) Mild pre-eclampsia in third trimester Status: Acute Plan - Discharge Medications Prescriptions: Docusate Sodium [Colace] 100 mg PO BID PRN #60 capsule PRN Reason: Constipation Lidocain2.5%/Prilocai2.5% [Emla] 5 gm TP PRN #1 tube Ferrous Sulfate [Feosol 325 MG tab] 325 mg PO BID #60 tablet Labetalol HCl [Labetalol 300mg TAB] 300 mg PO TID #90 tablet Ibuprofen [Motrin 800 MG tab] 800 mg PO TID PRN #30 tablet PRN Reason: Pain oxyCODONE /ACETAMINOPHEN [Percocet 5/325] 1 tab PO Q6HR PRN #30 tablet PRN Reason: Pain oxyCODONE /ACETAMINOPHEN [Percocet 5/325 mg] 1 - 2 tab PO Q4HR PRN #20 tablet PRN Reason: Pain - Provider Discharge Summary Activity: routine, no sex for 6 weeks, no strenuous exercise Additional instructions: [] Smoking cessation referral if applicable(refer to patient education folder for contact #) [] Refer to [facility] Booklet Call your doctor immediately for: * Fever > 100.5 * Heavy vaginal bleeding ( >1 pad per hour) * Severe persistent headache * Shortness of breath * Reddened, hot, painful area to leg or breast * Drainage or odor from incision. * Keep incision clean and dry at all times and follow doctor's instructions regarding bathing/showering -call the office to schedule circumcision within one week of delivery -do not use the cream prescribed prior to office visit for circumcision -CHECK BLOOD PRESSURE EACH TIME BEFORE TAKING MEDICATIONS. IF THE READING IS MORE THAN 160/105 PLEAS CALL PROVIDER. - Follow up plan Follow up: BRYANT SMITH MD [Primary Care Provider] - 7 Days
--- NOTE | 2019-08-18 09:55 | Event Note ---
Date: 08/18/19 Pt blood pressure currently in normal range. Will hold am does of blood pressure medications and closely monitor. Will consider decreasing meds to bid from TID.
[2019-08-18] MEDS: FERROUS SULFATE 325 MG TAB PO SCH (11:03)
[2019-08-21 11:27] VITALS: BP 134/77
== END 2019-08-18 17:30 | disposition home or self-care (01) | DRG 766 ==
LOC: EDBD 20:34 → LD 20:34 → OB 08-17 21:30
PROVIDERS: ADMIT Obstetrics & Gynecology; ATTEND Obstetrics & Gynecology
PROC: 10D00Z1 Extraction of Products of Conception, Low, Open Approach (ICD-10-PCS; principal; 2019-08-16)
DX: O11.4 Pre-existing hypertension with pre-eclampsia, complicating childbirth (principal); Z37.0 Single live birth; O76 Abnormality in fetal heart rate and rhythm complicating labor and delivery; Z3A.37 37 weeks gestation of pregnancy
CPT/HCPCS: 36415; 81001; 82565; 83615; 83735; 84450; 84460; 84550; 85014; 85018; 85027; 86592; 86850; 86900; 86901; 87086; 90471; 90715; G0378; J0360; J0690; J1100; J1885; J2270; J2405; J2590; J2765; J3010; J3475; J3490; J7030; J7120